=== PATIENT | female | born 2000 | race Caucasian/White ===

== ENCOUNTER 2021-10-03 19:58 | Emergency (ER) | payer SELFPAY ==
[2021-10-03] MEDS ORDERED: IBUPROFEN 600 MG (MOTRIN) TAB PO ONE (20:15)
--- NOTE | 2021-10-03 20:21 | ED Upper Extremity ---
General Chief Complaint: Upper Extremity Stated Complaint: RT THUMB INJ Source: patient Exam Limitations: no limitations History of Present Illness Date Seen by Provider: Oct 03, 2021 Time Seen by Provider: 20:03 Initial Comments 20-year-old female with no significant past medical history coming in due to right thumb pain. 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 Has had increasing pain throughout today for which she wanted to be seen. The pain is mild to moderate, constant, throbbing, worse when she moves her thumb, better with rest. She is not taking any medications for this. She is left-hand dominant. LMP 3 weeks ago. Allergies and Home Medications Allergies Coded Allergies: No Known Drug Allergies (Unverified , 10/03/21) Patient Home Medication List Home Medication List Reviewed: Yes Review of Systems Constitutional: No chills, No fever EENTM: No blurred vision Respiratory: No cough Cardiovascular: No chest pain Gastrointestinal: No abdominal pain Genitourinary: no symptoms reported Musculoskeletal: joint pain Skin: no symptoms reported Psychiatric/Neurological: No Symptoms Reported All Other Systems Reviewed Negative Unless Noted: Yes Past Picbhpr-Onnyup-Rnhzil Hx Patient Social History Tobacco Use?: No Use of E-Cig and/or Vaping dev: Yes E-Cig or Vaping type used: Nicotine Substance use?: No Alcohol Use?: No Pt feels they are or have been: No Past Medical History Surgeries: No Physical Exam Vital Signs Capillary Refill : Height, Weight, BMI Height: '" Weight: lbs. oz. kg; BMI Method: General Appearance: WD/WN, no apparent distress HEENT: PERRL/EOMI, normal ENT inspection, pharynx normal Neck: non-tender, full range of motion, supple, normal inspection Cardiovascular: regular rate, rhythm, no edema, no murmur Respiratory: chest non-tender, lungs clear, normal breath sounds, no respiratory distress, no accessory muscle use Gastrointestinal: normal bowel sounds, non tender, soft Back: normal inspection Shoulder: normal inspection, non-tender, no evidence of injury, normal ROM Elbow/Forearm: normal inspection, non-tender, no evidence of injury, normal ROM Wrist: Yes normal inspection, Yes non-tender, Yes no evidence of injury, Yes normal ROM Hand: normal inspection, no evidence of injury, normal ROM, soft tissue tend erness (Most tenderness along the extensor tendons of the thumb with a positive Loy's test, no scaphoid tenderness) Neurologic/Tendon: normal sensation, normal motor functions Neurologic/Psychiatric: no motor/sensory deficits, alert, normal mood/affect Skin: normal color, warm/dry Lymphatic: no adenopathy Progress/Results/Core Measures Progress Progress Note : Progress Note 20-year-old female with above history coming in due to right thumb pain. ABCs were intact and vitals were stable on presentation. Physical exam reassuring with no significant bony tenderness although she does have a positive Loy's test and likely has some degree of de Quervain's tenosynovitis versus thumb contusion from hitting it. X-ray is ordered and interpreted by me of her right thumb and was negative for fracture or dislocation. Given ibuprofen for pain control. I believe she is stable for discharge with outpatient follow-up. She was sent home with strict return precautions. Departure Impression Primary Impression: Thumb contusion Qualified Codes: S60.011A - Contusion of right thumb without damage to nail, initial encounter Disposition: 01 HOME, SELF-CARE Condition: Stable Departure-Patient Inst. Decision time for Depature: 20:25 Referrals: NO,LOCAL PHYSICIAN (PCP) Primary Care Physician BETTE CLEMONS MD Patient Instructions: Contusion (DC), de Quervain Tendinopathy Add. Discharge Instructions: You likely have a contusion of the bone in your thumb from hitting it. It is also possible you have what is called de Quervain's tenosynovitis which is an overuse injury of one of the tendons in your thumb. I recommend resting it. You can also buy a thumb spica splint [id number] or on [employer] for cheap to give you a thumb some rest. Take ibuprofen 600 mg every 6 hours as needed for pain. You can also ice it for the next couple of days. If you are having significant pain after the next 1 to 2 weeks and I recommend following up with Dr. Clemons in [place]. MARIO SANDOVAL MD Oct 03, 2021 20:21
[2021-10-03 20:27] VITALS: BP 149/97
--- NOTE | 2021-10-03 20:28 | Diagnostic Imaging Report ---
INDICATION: Right thumb pain after trauma. COMPARISON: None. FINDINGS: Multiple radiographic views of the right thumb were obtained and show no fracture, dislocation or other acute bony abnormality. Joint spaces are well maintained throughout. The soft tissues appear unremarkable. No radiopaque foreign bodies are identified. IMPRESSION: Unremarkable radiographic exam of the right thumb. Dictated by: Dictated on workstation # [id number]
== END 2021-10-03 20:29 | disposition home or self-care (01) ==
LOC: ER FS 20:01
DX: S60.011A Contusion of right thumb without damage to nail, initial encounter (principal); W22.8XXA Striking against or struck by other objects, initial encounter
CPT/HCPCS: 73140